=== PATIENT | male | born 1965 | race Caucasian/White ===

== ENCOUNTER → 2017-02-24 | Outpatient (CLI) | payer OTHER ==
--- NOTE | 2017-02-24 10:56 | NOWCEV ---
[facility] OUTPATIENT REHABILITATION SERVICES WHEELCHAIR CLINIC EVALUATION AND LETTER OF JUSTIFICATION Patient Name: LUANNE REDDING Physician: Kenan rConin MD Eval Date: 02/24/17 Therapist: Rebecca Rueda PT,MSPT Date of : 1965 MR#: [id number] Contact: Luanne Redding Subscriber: LUANNE REDDING Primary Ins: [employer] Subscriber #: [id number] EVALUATION FINDINGS Medical history - Luanne is a 51y/o male (335lbs) with a L above knee (AK) amputation. In December 2013 Luanne underwent a L total knee arthroplasty ( TKA). It became infected and had to be removed and then replaced again. This occurred 3 times, and ultimately he was not able to have the joint replaced, so the L leg was amputated above the knee in December 2015. 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 Luanne's current MWC is no longer meeting his needs. He was referred to this clinic to have recommendation made for the most medically appropriate MWC to allow Luanne to access MRADLs in his home and in the community. Functional Mobility - Luanne utilizes both a wheelchair or a L prosthetic limb with a forearm crutch to access MRADLs in his home. He is I with self propulsion of his wheelchair with B UE as well as his R LE. When he has his prosthesis donned, he reports being able to ambulate a maximum of 100' with forearm crutch. He reports about 2 days/wk, he is unable to ambulate at all with his prosthesis due to severe pain in his RLE from his DVT. He reports the pain can get as high as a 9/10. He also experiences severe LBP when ambulating with his AK prosthesis due to a compensated gait pattern. At that point is his fully reliant on his MWC for all mobility in the home. Luanne also utilizes his MWC for all MRADLs in the mornings and evenings. Prosthetic gait was unable to be assessed this date, as he is having the battery changed in the device. He has not had the prosthesis since November 2016. Luanne is I with stand pivot transfer to/from his MWC on his RLE and use of UE support. He is I with all bed mobility. Motor involvement - Luanne demonstrates good strength in his R LE, >/=4-/5 throughout. Function in his RLE is primarily limited by pain from his DVT. His R residual limb also has >/=4/5 throughout the hip (although not tested with prosthesis donned, as he does not have it at this time). He has 4/5 strength in B shoulders, be he does experience B shoulder pain with repeat use as well as with overhead activity. Luanne does have some tightness in his R ankle from his edema. He is able to extend his L residual limb to neutral. Posture - Luanne sits with a level pelvis and shoulders. B hips are abducted. Skin /Sensation - Luanne's sensation is intact to light touch. He reports stage 1 pressure sores on his coccyx as well as pain from sitting for prolonged periods in his current MWC. Luanne has severe pitting edema (3+) in his R LE from his DVT. His R lower leg is red in color. His L residual limb is fully healed. Endurance - In his prosthetic limb, he reports being able to ambulate 100' maximally. In his MWC Luanne can be up >10hrs/day. ADLs - Luanne can perform all ADLs from a modified independent level. He performs MRADLs in the morning and evening from a wheelchair level. During the day, he is intermittently able to utilize his his prosthesis for toileting and meal prep, but utilizes the chair during the day several days/wk due to RLE pain causing inability to ambulate. Luanne reports that he does activities such as cleaning from a wheelchair level. Cognitive/Social - Luanne lives in a single story home with his . The home has 2 small platform steps to enter, which Luanne is able to negotiate his chair over independently. 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 He is actively looking for work. Current wheelchair - Luanne is currently using a Drive wheelchair which he rents from [employer]. He has been utilizing his chair since the amputation. There are multiple reasons why this chair is not appropriate for Luanne. First, Luanne weighs 335lbs, which exceed the weight capacity of his current chair. The chair is too narrow, where Alcantar abducted legs rest on the tires, and the metal uprights are too narrow to accommodate his back. The seat depth is too short. Luanne also develops stage 1 pressure sores from sitting in the sling. He reports trying cushions he ordered on line, but reports bottoming out on them. Additionally, the chair is severely worn from [facility], and the seat sling is tearing. MEDICAL and FUNCTIONAL NEED/OBJECTIVES * To procure a light weight MWC to allow Luanne to safely and consistently access MRADLs in his home. EQUIPMENT RECOMMENDATIONS AND JUSTIFICATIONS The following recommendations are believed to be the most cost effective way to meet the patients medical and functional needs. * [employer] 4: Needed to provide Luanne with safe and consistent access to MRADLs in his home, and to replace his current MWC which is not meeting his needs. Luanne cannot consistently ambulate with his L prosthetic limb, even with an AD such as a walker, cane, or crutches due to pain in his RLE with standing and walking. A standard weight chair is not appropriate as Luanne experiences B shoulder pain from overuse. A standard weight chair would exacerbate his shoulder pain, leading to difficulty self propelling his chair. A light weight MWC will allow Luanne to safely and consistently access MRADLs in his home when he is unable to ambulate with his prosthesis without exacerbating his shoulder pain. Luanne will be able to safely and independently transfer to/fro his MWC. Luanne's weight is under the weight capacity of this chair. * Tension adjustable backrest: Needed to provide Luanne with appropriate pressure distribution and comfort when utilizing his MWC to perform MRADLs in the home, as he can be in his chair >8hrs at a time. * General use cushion: Needed to provide Luanne with pressure relief to alleviate coccygeal pain and redness when sitting in his chair for the majority of the day. * Pneumatic tires with airless inserts: Needed to prevent flats from occurring when in the community and so that Luanne does not have to perform regular maintenance on the chair. * Anti-tippers: To prevent Luanne's chair from flipping over backward, when propelling, considering he has less weight anterior on the chair due to his LLE amputation. * Pelvic position belt: To provide Luanne with safety when self propelling his chair. These recommendations are based on the likelihood that Luanne will require the use of a wheelchair for mobility and MRADLs for the rest of his life. Luanne has not expressed any unwillingness to use the equipment. If you have any questions or concerns regarding the stated recommendations, please feel free to contact the therapist at . Thank you for your cooperation in obtaining the necessary equipment for this patient. XIOMARA Ruiz
== END ==
PROVIDERS: ATTEND Orthopaedic Surgery
DX: Z02.89 Encounter for other administrative examinations (principal); Z89.612 Acquired absence of left leg above knee; Z89.611 Acquired absence of right leg above knee; M19.011 Primary osteoarthritis, right shoulder; M19.012 Primary osteoarthritis, left shoulder; Z99.3 Dependence on wheelchair
CPT/HCPCS: 97162-GP